=== PATIENT | female | born 1965 ===

== ENCOUNTER 2017-12-29 08:57 | Outpatient (CLI) | payer OTHER ==
[~2017-12-29 08:57] MED LIST: ATENOLOL100 MG
== END 2017-12-29 09:18 | disposition home or self-care (01) ==
LOC: MAMO-SONO 08:57
DX: N60.11 Diffuse cystic mastopathy of right breast (principal); N60.12 Diffuse cystic mastopathy of left breast; Z12.31 Encounter for screening mammogram for malignant neoplasm of breast; E04.1 Nontoxic single thyroid nodule

== ENCOUNTER → 2018-02-09 | Outpatient (CLI) | payer OTHER | END | disposition home or self-care (01) | LOC: NUCLEAR 13:55 | DX: M81.0 Age-related osteoporosis without current pathological fracture (principal) ==

== ENCOUNTER 2019-08-24 09:41 | Outpatient (CLI) | payer OTHER | END 2019-08-24 09:49 | disposition home or self-care (01) | LOC: SONOGRAMA 09:41 → MAMO-SONO 09:45 → SONOGRAMA 09:49 | DX: E04.1 Nontoxic single thyroid nodule (principal) ==

== ENCOUNTER 2021-07-24 09:50 | Outpatient (CLI) | payer OTHER | END 2021-07-24 09:59 | disposition home or self-care (01) | LOC: RAD 09:50 | PROVIDERS: ATTEND Internal Medicine Cardiovascular Disease | DX: M25.512 Pain in left shoulder (principal) ==

== ENCOUNTER 2022-01-21 10:37 | Outpatient (CLI) | payer OTHER | END 2022-01-21 10:47 | disposition home or self-care (01) | LOC: RAD 10:37 | PROVIDERS: ATTEND Physical Medicine & Rehabilitation | DX: M21.969 Unspecified acquired deformity of unspecified lower leg (principal) ==

== ENCOUNTER 2023-06-14 11:22 | Outpatient (CLI) | payer OTHER ==
[~2023-06-14 11:22] MED LIST changes: +DICLOFENAC EPO1 EACH TD; +LIDODERM1 EACH TOP; +MEDROLPACK PO; +NEURONTIN300 MG PO
== END 2023-06-14 11:29 | disposition home or self-care (01) ==
LOC: RAD 11:22
PROVIDERS: ATTEND Specialist
DX: J45.998 Other asthma (principal); J01.90 Acute sinusitis, unspecified

== ENCOUNTER 2023-07-19 07:50 | Outpatient (CLI) | payer OTHER | END 2023-07-19 08:05 | disposition home or self-care (01) | LOC: MAMO-SONO 07:50 | PROVIDERS: ATTEND Internal Medicine Endocrinology, Diabetes & Metabolism | DX: Z12.31 Encounter for screening mammogram for malignant neoplasm of breast (principal); N64.4 Mastodynia ==

== ENCOUNTER 2024-09-19 13:41 | Outpatient (CLI) | payer OTHER | END 2024-09-19 13:42 | disposition home or self-care (01) | LOC: NUCLEAR 13:41 | PROVIDERS: ATTEND Internal Medicine Endocrinology, Diabetes & Metabolism | DX: M81.0 Age-related osteoporosis without current pathological fracture (principal) ==

== ENCOUNTER 2025-01-30 07:52 | Outpatient (CLI) | payer OTHER | END 2025-01-30 08:05 | disposition home or self-care (01) | LOC: MAMO-SONO 07:52 | PROVIDERS: ATTEND Internal Medicine Endocrinology, Diabetes & Metabolism | DX: N64.9 Disorder of breast, unspecified (principal); Z12.31 Encounter for screening mammogram for malignant neoplasm of breast; E04.1 Nontoxic single thyroid nodule ==